=== PATIENT | male | born 1985 | race African-American/Black ===

== ENCOUNTER 2017-07-22 17:28 | Emergency (ER) | payer MEDICAID ==
[~2017-07-22] VITALS: Ht 185.4 cm; Wt 96.0 kg
[2017-07-22 21:36] LABS: EOSINOPHILS % 2.3 % (0.0-5.0); HEMATOCRIT. 44.4 % (42.0-52.0); HEMOGLOBIN. 15.6 g/dL (14.0-18.0); LYMPHOCYTES % 24.8 % (20.0-50.0); MEAN CORPUSCULAR HEMOGLOBIN 32.7 pg (28.0-32.0); MEAN CORPUSCULAR VOLUME 93.3 fL (80.0-94.0); MEAN PLATELET VOLUME 7.9 fl (7.4-10.4); MONOCYTES % 10.6 % (2.0-8.0); NEUTROPHILS % 61.3 % (40.0-76.0); PLATELET 211 x1000/uL (130-400); RED BLOOD CELL COUNT 4.76 mill/uL (4.7-6.1)
[2017-07-22 21:45] LABS: D-DIMER 0.37 mg/L FEU (<0.50)
[2017-07-22 21:50] LABS: CARBON DIOXIDE 24 mEq/L (21-32); CHLORIDE 108 mEq/L (98-107); TROPONIN I < 0.02 ng/mL (0.00-0.04)
[2017-07-23 01:30] VITALS: BP 116/69
[2017-07-23] MEDS: ASPIRIN 325MG TABLET PO ONE ×2 (02:17→02:18)
== END 2017-07-23 02:16 | disposition home or self-care (01) ==
LOC: ER 18:48
DX: R07.2 Precordial pain (principal); R06.02 Shortness of breath; F17.200 Nicotine dependence, unspecified, uncomplicated
CPT/HCPCS: 36415; 71010; 80053; 83880; 84484; 85025; 85379; 85610; 93005; 99285; Z7610